=== PATIENT | male | born 1950 | race Caucasian/White ===

== ENCOUNTER 2021-05-03 06:20 | Emergency (ER) | payer MEDICAID, MEDICARE ==
[~2021-05-03] VITALS: Ht 177.8 cm; Wt 113.6 kg
[2021-05-03 06:44] LABS: GLUCOMETER DEV NAME(LOC) ERT.5; GLUCOSE,POINT OF CARE 106 MG/DL (70-110)
[2021-05-03 06:59] LABS: BASOPHILS % (AUTO) 0.7 % (0.0-2.0); EOSINOPHILS % (AUTO) 2.7 % (1.0-6.0); HEMATOCRIT 34.2 % (41-53); HEMOGLOBIN 11.1 g/dL (13.5-17.5); LYMPHOCYTES # (AUTO) 1.4 K/uL (1.0-4.8); LYMPHOCYTES % (AUTO) 20.4 % (22.0-44.0); MEAN CORPUSCULAR HGB CONC 32.3 G/dL (31.0-37.0); MEAN CORPUSCULAR VOLUME 96 fL (80-100); MONOCYTES # (AUTO) 0.6 K/uL (0.1-1.0); MONOCYTES % (AUTO) 9.7 % (2.0-9.0); NEUTROPHILS # (AUTO) 4.4 K/uL (1.8-7.7); NEUTROPHILS % (AUTO) 66.5 % (40.0-70.0); PLATELET COUNT (AUTO) 292 K/uL (150-450); RED BLOOD CELL COUNT(AUTO) 3.56 MIL/uL (4.50-5.90); RED CELL DISTRIBUTION WIDTH 14.2 % (11.5-14.5)
[2021-05-03 07:07] LABS: ANION GAP 7 mmol/L (8-16); CALCIUM, TOTAL 8.8 mg/dL (8.8-10.5); CARBON DIOXIDE 29 mmol/L (22-29); CHLORIDE 101 mmol/L (98-107); GLOMERULAR FILTR. RATE CALC 46 mL/min (>60); GLUCOSE,RANDOM 108 mg/dL (70-110); POTASSIUM 3.8 mmol/L (3.5-5.1); SODIUM SERUM 137 mmol/L (136-145); UREA NITROGEN, BLOOD 43 mg/dL (7-18)
[2021-05-03 07:13] LABS: ALANINE AMINOTRANSFERASE 8 U/L (12-78); ALBUMIN 3.6 g/dL (3.4-5.0); ALKALINE PHOSPHATASE 47 U/L (46-116); ASPARTATE AMINOTRANSFERASE 11 U/L (15-37); BILIRUBIN,TOTAL 0.3 mg/dL (0.1-1.0); TOTAL PROTEIN, SERUM 7.5 g/dL (6.4-8.2)
[2021-05-03 07:59] LABS: AMPHET/METH SCREEN,URINE NEGATIVE (NEGATIVE); BARBITURATE SCREEN, URINE NEGATIVE (NEGATIVE); BENZODIAZEPINES SCREEN,URINE NEGATIVE (NEGATIVE); CANNABINOID SCREEN,URINE NEGATIVE (NEGATIVE); COCAINE SCREEN,URINE NEGATIVE (NEGATIVE); METHADONE SCREEN, URINE NEGATIVE (NEGATIVE); OPIATE SCREEN,URINE NEGATIVE (NEGATIVE)
[2021-05-03 08:00] LABS: PHENCYCLIDINE SCREEN,URINE NEGATIVE (NEGATIVE)
[2021-05-03 09:00] VITALS: BP 122/76
[2021-05-03 09:08] LABS: GLUCOMETER DEV NAME(LOC) ERT.5; GLUCOSE,POINT OF CARE 102 MG/DL (70-110)
== END 2021-05-03 09:37 | disposition home or self-care (01) ==
LOC: EMS 06:28
DX: F20.9 Schizophrenia, unspecified (principal); E11.9 Type 2 diabetes mellitus without complications; F41.9 Anxiety disorder, unspecified
CPT/HCPCS: 36415; 80053; 80307; 82962; 85025; 99284; G0480

== ENCOUNTER 2022-02-09 07:23 | Inpatient (IN) | payer MEDICARE ==
[~2022-02-09] VITALS: Ht 180.3 cm; Wt 120.0 kg
[2022-02-09 07:46] LABS: COVID AG,FIA SOURCE NASAL SWAB
[2022-02-09 07:48] LABS: BASOPHILS % (AUTO) 0.8 % (0.0-2.0); EOSINOPHILS % (AUTO) 3.4 % (1.0-6.0); HEMATOCRIT 37.3 % (41-53); HEMOGLOBIN 12.2 g/dL (13.5-17.5); LYMPHOCYTES # (AUTO) 1.6 K/uL (1.0-4.8); MEAN CORPUSCULAR HEMOGLOBIN 32.2 pg (26.0-34.0); MEAN CORPUSCULAR HGB CONC 32.7 G/dL (31.0-37.0); MEAN CORPUSCULAR VOLUME 98 fL (80-100); MONOCYTES # (AUTO) 0.6 K/uL (0.1-1.0); MONOCYTES % (AUTO) 8.1 % (2.0-9.0); NEUTROPHILS % (AUTO) 66.7 % (40.0-70.0); PLATELET COUNT (AUTO) 236 K/uL (150-450); RED BLOOD CELL COUNT(AUTO) 3.79 MIL/uL (4.50-5.90); RED CELL DISTRIBUTION WIDTH 14.1 % (11.5-14.5)
[2022-02-09 08:02] LABS: APPEARANCE,URINE CLEAR (CLEAR); BILIRUBIN,URINE NEGATIVE (NEGATIVE); GLUCOSE, URINE (UA) NEGATIVE (NEGATIVE); KETONES,URINE NEGATIVE (NEGATIVE); LEUKOCYTE ESTERASE ,URINE NEGATIVE (NEGATIVE); NITRATE,URINE NEGATIVE (NEGATIVE); OCCULT BLOOD,URINE NEGATIVE (NEGATIVE); PH,URINE 6.5 (5.0-8.0); PROTEIN,URINE NEGATIVE (NEGATIVE); SPECIFIC GRAVITIY, URINE 1.019 (1.003-1.030); UROBILINOGEN,URINE <=1.0 mg/dL (<=1.0)
[2022-02-09 08:05] LABS: ANION GAP 5 mmol/L (8-16); CALCIUM, TOTAL 8.4 mg/dL (8.8-10.5); CARBON DIOXIDE 31 mmol/L (22-29); CHLORIDE 108 mmol/L (98-107); CREATININE 1.52 mg/dL (0.60-1.30); GLOMERULAR FILTR. RATE CALC 45 mL/min (>60); GLUCOSE,RANDOM 112 mg/dL (70-110); POTASSIUM 4.7 mmol/L (3.5-5.1); SODIUM SERUM 144 mmol/L (136-145); UREA NITROGEN, BLOOD 34 mg/dL (7-18)
[2022-02-09 08:09] LABS: AMPHET/METH SCREEN,URINE NEGATIVE (NEGATIVE); BARBITURATE SCREEN, URINE NEGATIVE (NEGATIVE); BENZODIAZEPINES SCREEN,URINE NEGATIVE (NEGATIVE); CANNABINOID SCREEN,URINE NEGATIVE (NEGATIVE); COCAINE SCREEN,URINE NEGATIVE (NEGATIVE); METHADONE SCREEN, URINE NEGATIVE (NEGATIVE); OPIATE SCREEN,URINE NEGATIVE (NEGATIVE)
[2022-02-09 08:10] LABS: ALANINE AMINOTRANSFERASE 7 U/L (12-78); ALBUMIN 3.4 g/dL (3.4-5.0); ALKALINE PHOSPHATASE 52 U/L (46-116); ASPARTATE AMINOTRANSFERASE 11 U/L (15-37); BILIRUBIN,TOTAL 0.2 mg/dL (0.1-1.0); TOTAL PROTEIN, SERUM 6.9 g/dL (6.4-8.2)
[2022-02-09 08:10] LABS: PHENCYCLIDINE SCREEN,URINE NEGATIVE (NEGATIVE)
[2022-02-09] MEDS ORDERED: ZOLPIDEM TARTRATE 10 MG TABLET PO PRN (09:15)
[2022-02-09] MEDS ORDERED: OLANZapine 5 MG RAPDIS TABLET PO PRN (09:15)
[2022-02-09] MEDS ORDERED: LORazepam 2 MG TABLET PO PRN (09:15)
[2022-02-09] MEDS ORDERED: LOPERAMIDE HCL 2 MG CAPSULE PO PRN (09:30)
[2022-02-09] MEDS ORDERED: MAG HYDROX/AL HYDROX/SIMETH ES 30 ML SUSPENSION UDCUP PO PRN (09:30)
[2022-02-09] MEDS ORDERED: ACETAMINOPHEN 325 MG TABLET PO PRN (09:30)
[2022-02-09] MEDS ORDERED: MELATONIN 3 MG TABLET PO ONE (09:30)
[2022-02-09] MEDS ORDERED: PROMETHAZINE HCL 25 MG TABLET PO PRN (09:30)
[2022-02-09] MEDS ORDERED: MAGNESIUM HYDROXIDE SUSPENSION 30 ML UDCUP PO PRN (09:30)
[2022-02-09] MEDS ORDERED: HydrOXYzine PAMOATE 50 MG CAPSULE PO PRN (09:30)
[2022-02-09] MEDS ORDERED: GuaiFENesin/D-METHORPHAN [SUGAR-FREE] 200-20MG/10 ML SYRUP UDCUP PO PRN (09:30)
[2022-02-09] MEDS ORDERED: TUBERCULIN, PURIFIED PROTEIN DERIVATIVE 5 TU/0.1 ML SYRINGE ID ONE (09:30)
[2022-02-09 12:11] LABS: GLUCOMETER DEV NAME(LOC) ERT.5; GLUCOSE,POINT OF CARE 82 MG/DL (70-110)
[2022-02-09 17:45] VITALS: BP 136/60
[2022-02-09] MEDS: THIAMINE 100 MG TABLET PO SCH (17:45)
[2022-02-09] MEDS ORDERED: PNEUMOCOCCAL VACCINE POLYVALENT 0.5 ML VIAL [PPSV23] IM. ONE (18:00)
[2022-02-09] MEDS ORDERED: PSYLLIUM SEED ORANGE SF 5.8 GM/PACKET PO PRN (18:30)
[2022-02-09] MEDS: MIRTAZAPINE 15 MG TABLET PO SCH (20:39)
[2022-02-09] MEDS: MELATONIN 5 MG TABLET PO SCH (20:39)
[2022-02-09] MEDS: SENNA 187 MG TABLET PO SCH ×2 (21:00→21:31)
[2022-02-09] MEDS: FINASTERIDE 5 MG TABLET PO SCH ×2 (21:00→21:30)
[2022-02-10 02:35] VITALS: BP 136/70
[2022-02-10] MEDS: MetFORMIN HCL 500 MG TABLET PO SCH ×2 (06:20→16:13)
[2022-02-10 08:04] LABS: HEMOGLOBIN A1C 5.9 % (3.8-5.6)
[2022-02-10 08:05] VITALS: BP 136/72
[2022-02-10 08:18] LABS: CHOL/HDL RATIO 3.5 (4.2-7.3); FREE T4 (FREE THYROXINE) 0.84 ng/dL (0.76-1.46); THYROID STIMULATING HORMONE 2.84 uIU/mL (0.36-3.74)
[2022-02-10] MEDS: BUMETANIDE 1 MG TABLET PO SCH (08:19)
[2022-02-10] MEDS: POTASSIUM CHLORIDE 8 MEQ ER TABLET PO SCH (08:19)
[2022-02-10] MEDS: FENOFIBRATE,MICRONIZED 67 MG CAPSULE PO SCH (08:19)
[2022-02-10 08:20] LABS: PROSTATE SPECIFIC ANTIGEN 1.1 ng/mL (0.00-4.00)
[2022-02-10] MEDS: MULTIVITAMINS WITH MINERALS, THERAPEUTIC TABLET PO SCH (08:20)
[2022-02-10] MEDS: THIAMINE 100 MG TABLET PO SCH ×2 (08:20→16:13)
[2022-02-10] MEDS: HYDROCHLOROTHIAZIDE 25 MG TABLET PO SCH (08:20)
[2022-02-10] MEDS: OMEGA-3/DHA/EPA/FISH OIL 1,000 MG CAPSULE PO SCH (08:20)
[2022-02-10] MEDS: ASPIRIN 81 MG CHEWABLE TABLET PO SCH (08:20)
[2022-02-10] MEDS: DOCUSATE SODIUM 250 MG CAPSULE PO SCH (08:21)
[2022-02-10] MEDS: OMEPRAZOLE 20 MG CAPSULE PO SCH (08:21)
[2022-02-10] MEDS: FOLIC ACID 1 MG TABLET PO SCH (08:21)
[2022-02-10] MEDS: LATANOPROST 0.005% 2.5 ML OPHTHALMIC SOLUTION OU SCH (08:22)
[2022-02-10] MEDS: METHAZOLAMIDE 50 MG TABLET PO SCH (09:00)
[2022-02-10] MEDS ORDERED: MULTIVITAMINS, THERAPEUTIC TABLET PO SCH (09:00)
[2022-02-10] MEDS ORDERED: OMEGA-3/DHA/EPA/FISH OIL 500 MG CAPSULE PO SCH (09:00)
[2022-02-10] MEDS: PRAVASTATIN SODIUM 20 MG TABLET PO SCH (16:13)
[2022-02-10 16:23] VITALS: BP 137/65
[2022-02-10] MEDS: MELATONIN 5 MG TABLET PO SCH (20:39)
[2022-02-10] MEDS: SENNA 187 MG TABLET PO SCH (20:39)
[2022-02-10] MEDS: MIRTAZAPINE 15 MG TABLET PO SCH (20:39)
[2022-02-10] MEDS: FINASTERIDE 5 MG TABLET PO SCH (20:39)
[2022-02-10] MEDS: ARIPiprazole 10 MG TABLET PO SCH (22:02)
[2022-02-11 05:36] VITALS: BP 134/72
[2022-02-11] MEDS: MetFORMIN HCL 500 MG TABLET PO SCH ×2 (06:59→16:56)
[2022-02-11 08:25] VITALS: BP 129/75
[2022-02-11] MEDS: METHAZOLAMIDE 50 MG TABLET PO SCH (09:00)
[2022-02-11] MEDS: DOCUSATE SODIUM 250 MG CAPSULE PO SCH (09:52)
[2022-02-11] MEDS: MULTIVITAMINS WITH MINERALS, THERAPEUTIC TABLET PO SCH (09:52)
[2022-02-11] MEDS: HYDROCHLOROTHIAZIDE 25 MG TABLET PO SCH (09:52)
[2022-02-11] MEDS: ASPIRIN 81 MG CHEWABLE TABLET PO SCH (09:52)
[2022-02-11] MEDS: OMEGA-3/DHA/EPA/FISH OIL 1,000 MG CAPSULE PO SCH (09:52)
[2022-02-11] MEDS: FOLIC ACID 1 MG TABLET PO SCH (09:52)
[2022-02-11] MEDS: OMEPRAZOLE 20 MG CAPSULE PO SCH (09:52)
[2022-02-11] MEDS: THIAMINE 100 MG TABLET PO SCH ×2 (09:52→16:56)
[2022-02-11] MEDS: BUMETANIDE 1 MG TABLET PO SCH (09:53)
[2022-02-11] MEDS: POTASSIUM CHLORIDE 8 MEQ ER TABLET PO SCH (09:53)
[2022-02-11] MEDS: FENOFIBRATE,MICRONIZED 67 MG CAPSULE PO SCH (09:54)
[2022-02-11] MEDS: PRAVASTATIN SODIUM 20 MG TABLET PO SCH (09:54)
[2022-02-11] MEDS: LATANOPROST 0.005% 2.5 ML OPHTHALMIC SOLUTION OU SCH (09:54)
[2022-02-11 11:56] LABS: GLUCOMETER DEV NAME(LOC) BV3N.; GLUCOSE,POINT OF CARE 109 MG/DL (70-110)
[2022-02-11] MEDS ORDERED: MELA5TAB40 PO (13:48)
[2022-02-11] MEDS ORDERED: OMEG-108 PO (13:48)
[2022-02-11] MEDS ORDERED: ARIP10TA38 PO (13:48)
[2022-02-11] MEDS ORDERED: MIRT-89 PO (13:48)
[2022-02-11 16:06] VITALS: BP 140/69
[2022-02-11] MEDS: FINASTERIDE 5 MG TABLET PO SCH (20:28)
[2022-02-11] MEDS: ARIPiprazole 10 MG TABLET PO SCH (20:28)
[2022-02-11] MEDS: SENNA 187 MG TABLET PO SCH (20:28)
[2022-02-11] MEDS: MELATONIN 5 MG TABLET PO SCH (20:28)
[2022-02-11] MEDS ORDERED: MIRTAZAPINE 15 MG TABLET PO SCH (21:00)
[2022-02-12 05:34] VITALS: BP 136/67
[2022-02-12] MEDS: MetFORMIN HCL 500 MG TABLET PO SCH (06:56)
[2022-02-12 08:04] VITALS: BP 128/71
[2022-02-12] MEDS: FENOFIBRATE,MICRONIZED 67 MG CAPSULE PO SCH (09:31)
[2022-02-12] MEDS: METHAZOLAMIDE 50 MG TABLET PO SCH (09:31)
[2022-02-12] MEDS: POTASSIUM CHLORIDE 8 MEQ ER TABLET PO SCH (09:32)
[2022-02-12] MEDS: BUMETANIDE 1 MG TABLET PO SCH (09:32)
[2022-02-12] MEDS: PRAVASTATIN SODIUM 20 MG TABLET PO SCH (09:32)
[2022-02-12] MEDS: ASPIRIN 81 MG CHEWABLE TABLET PO SCH (09:33)
[2022-02-12] MEDS: HYDROCHLOROTHIAZIDE 25 MG TABLET PO SCH (09:33)
[2022-02-12] MEDS: OMEPRAZOLE 20 MG CAPSULE PO SCH (09:34)
[2022-02-12] MEDS: FOLIC ACID 1 MG TABLET PO SCH (09:34)
[2022-02-12] MEDS: THIAMINE 100 MG TABLET PO SCH (09:34)
[2022-02-12] MEDS: MULTIVITAMINS WITH MINERALS, THERAPEUTIC TABLET PO SCH (09:34)
[2022-02-12] MEDS: DOCUSATE SODIUM 250 MG CAPSULE PO SCH (09:34)
[2022-02-12] MEDS: OMEGA-3/DHA/EPA/FISH OIL 1,000 MG CAPSULE PO SCH (09:34)
[2022-02-12] MEDS: LATANOPROST 0.005% 2.5 ML OPHTHALMIC SOLUTION OU SCH (09:34)
== END 2022-02-12 14:00 | disposition home or self-care (01) | DRG 885 ==
LOC: EMS 07:26 → B3A 14:36
PROVIDERS: ADMIT Psychiatry & Neurology Psychiatry; ATTEND Psychiatry & Neurology Psychiatry
DX: F25.9 Schizoaffective disorder, unspecified (principal); F06.30 Mood disorder due to known physiological condition, unspecified; N18.9 Chronic kidney disease, unspecified; F33.2 Major depressive disorder, recurrent severe without psychotic features; R45.851 Suicidal ideations; E11.22 Type 2 diabetes mellitus with diabetic chronic kidney disease; E78.5 Hyperlipidemia, unspecified; I12.9 Hypertensive chronic kidney disease with stage 1 through stage 4 chronic kidney disease, or unspecified chronic kidney disease; K21.9 Gastro-esophageal reflux disease without esophagitis; Z66 Do not resuscitate; N40.0 Benign prostatic hyperplasia without lower urinary tract symptoms; F41.9 Anxiety disorder, unspecified; F22 Delusional disorders; R32 Unspecified urinary incontinence; Z55.9 Problems related to education and literacy, unspecified; Z59.9 Problem related to housing and economic circumstances, unspecified; Z63.9 Problem related to primary support group, unspecified; Z65.3 Problems related to other legal circumstances; Z90.49 Acquired absence of other specified parts of digestive tract; Z91.51 Personal history of suicidal behavior; Z91.52 Personal history of nonsuicidal self-harm; Z79.84 Long term (current) use of oral hypoglycemic drugs
CPT/HCPCS: 80053; 80061; 81003; 82962; 83036; 84153; 84439; 84443; 85025; 86592; 87081; 99285; G0480; Q9967